=== PATIENT | male | born 2000 | race Caucasian/White ===

== ENCOUNTER 2022-07-13 14:27 | Emergency (ER) | payer SELFPAY ==
[~2022-07-13] VITALS: Ht 182.9 cm; Wt 79.5 kg
[2022-07-13 14:41] VITALS: BP 134/79
[2022-07-13] MEDS ORDERED: LORazepam 1 MG TABLET PO ONE (16:30)
== END 2022-07-13 16:56 | disposition home or self-care (01) ==
LOC: EMS 14:35
DX: F32.9 Major depressive disorder, single episode, unspecified (principal); F10.20 Alcohol dependence, uncomplicated; F12.90 Cannabis use, unspecified, uncomplicated; J45.909 Unspecified asthma, uncomplicated
CPT/HCPCS: 99283